=== PATIENT | female | born 1990 | race Caucasian/White ===

== ENCOUNTER 2022-01-21 07:47 | Inpatient (IN) ==
[2022-01-21] MEDS ORDERED: OXYTOCIN 30 UNITS/500 ML BAG IV PRN ×3 (08:08→18:31)
--- NOTE | 2022-01-21 08:22 | History & Physical Report ---
Date of Service January 21, 2022 Assessment & Plan (1) Post-term , 40-42 weeks of gestation: Plan: 31-year-old -0-0-2 at 40 weeks and 6 days of gestation, presenting today for scheduled induction of labor. Vital signs stable afebrile, heart rate reassuring, Cervix favorable, GBS negative, COVID testing negative, Plan to admit, monitor, labs, oxytocin per protocol, epidural for pain as patient desires, AROM. All questions were answered. Admission and Anticipated Discharge Date Admission Date: January 21, 2022 History of Present Illness Primary Care Provider: NO PCP Patient is a 31-year-old -0-0-2 at 40 weeks and 6 days of gestation who was scheduled for induction for postdates. She has no complaints. She denies contractions, leakage of fluid, vaginal bleeding. She reports good movements. Her has been uncomplicated. GBS negative. COVID testing negative. She denies any medical problems. Allergies Allergy/AdvReac Type Severity Reaction Status Date / Time No Known Allergies Allergy Unverified 06/15/15 08:58 Home Medications Medication Instructions Recorded Confirmed Type pediatric gozqmcjn-[id number] 1 tab PO DAILY 01/21/22 01/21/22 History (Flintstones Complete (iron)) Patient History Medical History No known health problems Surgical History No history of previous surgery Family History Grandmother (Maternal) Myocardial infarction Grandmother (Paternal) Diabetes Grandmother (Paternal) Polio OB History Full-term 's, 11 and 6 years old children. [employer] History No history of STDs. No history of chlamydia, gonorrhea, herpes. Review of Systems as per Subjective / HPI Physical Exam Constitutional: WD/WN, vitals as above well developed and well nourished Not in acute distress. Gastrointestinal (Abdomen): normal bowel sounds, soft, nontender, no hepatosplenomegaly (Gravid) Genitourinary: normal external appearance OB Exam Abdomen: + vertex Manual OB Exam: + cervical dilation 3 cm, + cervical effacement 50% and + station -2 OB Exam Monitor Tracing: + external uterine monitor used and + category I Results & Data ([facility]) Vital Signs (Past 12 Hours) Vital Signs Temp Pulse Resp BP 01/21/22 07:56 36.9 C 93 H 20 130/78
[2022-01-21] MEDS: LACTATED RINGER'S 1,000 ML IV PRN ×3 (08:47→16:49)
[2022-01-21 08:51] LABS: Hematocrit (blood only) 37.7 % (37-47); Hemoglobin 12.9 g/dL (12.0-16.0); Mean Corpuscular Hemoglobin 29.8 pg (25-34); Mean Corpuscular Hgb Conc 34.2 g/dL (32-36); Mean Corpuscular Volume 87.1 fL (80-100); Mean Platelet Volume 10.9 fL (7.4-10.4); Platelet Count 232 K/uL (130-400); RDW Coefficient of Variation 12.6 % (11.5-14.5); RDW Standard Deviation 40.3 fL (36.4-46.3); Red Blood Count 4.33 M/uL (4.2-5.4); White Blood Count 9.01 K/uL (4.8-10.8)
[2022-01-21 09:06] LABS: Alanine Aminotransferase 33 U/L (7-52); Albumin Globulin Ratio 0.8 (0.9-2); Albumin Level 3.1 gm/dl (3.4-5.0); Alkaline Phosphatase 242 U/L (34-104); Anion Gap 8 (3-11); Aspartate Aminotransferase 18 U/L (13-39); BUN Creatinine Ratio 18.4 (10-20); Bilirubin,Total 0.3 mg/dl (0.2-1.0); Blood Urea Nitrogen 9 mg/dl (6-23); Calcium 8.8 mg/dl (8.5-10.1); Carbon Dioxide 22 mmol/L (21-32); Chloride 104 mmol/L (98-107); Est GFR (African American) > 150.0 ml/min; Est GFR (Non-African American) 130.7 ml/min; Globulin 3.8 gm/dl (2.5-4.0); Glucose 95 mg/dl (70-99(Fasting)); Potassium 3.5 mmol/L (3.5-5.1); Sodium 134 mmol/L (136-145); Total Protein 6.9 gm/dl (6.0-8.3)
[2022-01-21] MEDS ORDERED: ePHEDrine sulfate 50 MG/ML AMP ONE (13:02)
[2022-01-21] MEDS ORDERED: fentaNYL citrate 100 MCG/2 ML VIAL ONE (13:03)
[2022-01-21] MEDS ORDERED: BUPIVACAINE 0.25% 30 ML VIAL ONE ×2 (13:03→17:06)
[2022-01-21] MEDS ORDERED: fentaNYL 2MCG/ML ROPIVACAINE 1.25MG/ML 100 ML BAG EPI ONE (13:03)
[2022-01-21] MEDS ORDERED: SODIUM CHLORIDE 0.9% INJ 10 ML VIAL ONE ×2 (13:03→17:06)
[2022-01-21] MEDS ORDERED: NALOXONE HCL 1 MG in SODIUM CHLORIDE 0.9% 1000ML 1,000 ML IV PRN (13:22)
[2022-01-21] MEDS ORDERED: NALBUPHINE HCL INJ 10 MG/ML AMP IV PRN (13:22)
[2022-01-21] MEDS ORDERED: ePHEDrine sulfate 50 MG/ML AMP IV PRN (13:22)
[2022-01-21] MEDS ORDERED: fentaNYL 2MCG/ML ROPIVACAINE 1.25MG/ML 100 ML BAG EPI PRN (13:22)
[2022-01-21] MEDS ORDERED: NALOXONE HCL 0.4 MG/1 ML VIAL/CARP IV PRN (13:22)
[2022-01-21] MEDS ORDERED: diphenhydrAMINE 50 MG/ML VIAL IV PRN (13:22)
--- NOTE | 2022-01-21 13:22 | Anesthesiology Consultation ---
Date of Service January 21, 2022 Assessment & Plan Chart Review Chart Review: Acceptable Risk for Surgery Consults Requested none Proposed Anesthesia Risk / Benefits Reviewed With: PT / POA / Parent / Guardian, Accepts Plan and Informed Consent Obtained History Height/Weight Height: 5 ft 7 in Weight: 86.636 kg Allergies Allergy/AdvReac Type Severity Reaction Status Date / Time No Known Allergies Allergy Unverified 06/15/15 08:58 Medications Home Medications Medication Instructions Recorded Confirmed Last Taken pediatric ormqstkn-xgkc-wki 1 tab PO DAILY 01/21/22 01/21/22 01/20/22 13:00 (Flintstones Complete (iron)) Active Medications Generic Name Dose Route Start Last Admin Trade Name Freq PRN Reason Stop Dose Admin Lactated Ringer's 1,000 mls @ 150 mls/hr 01/21/22 08:08 01/21/22 13:10 Lr IV 01/23/22 08:07 999 mls/hr .[id number] PRN Administration L&D Protocol Protocol Oxytocin 30 units in 500 mls @ 10 mls/hr 01/21/22 08:10 01/21/22 13:16 Pitocin IV 01/23/22 08:09 0.6 units/hr .Q24H PRN 10 mls/hr Labor Induction/Augmentation Titration Protocol 0.6 UNITS/HR Past Medical History Medical History No known health problems Exercise / Class Metabolic Activity II 4-5 Yardwork/Stairs/Walk up hill Past Family History Family History Grandmother (Maternal) Myocardial infarction Grandmother (Paternal) Diabetes Grandmother (Paternal) Polio Past Surgical History Surgical History No history of previous surgery Past Anesthesia History No Hx of Anesthesia Complications and No Family Hx of Anesthesia Complications History of PONV No Hx of PONV and No Hx of Motion Sickness Social History Smoking Status: Never smoker Hx Alcohol Use: No Hx Substance Use: No substance use type: does not use Physical Exam Vital Signs Last Vital Signs Temp 97.7 F 01/21/22 11:33 Pulse 68 01/21/22 13:19 Resp 18 01/21/22 12:38 BP 120/82 01/21/22 12:38 Pulse Ox 100 01/21/22 13:19 ENMT Mouth: no dentition abnormality Thyromental Distance: > or= 3.5 Finger Breadths Mallampati Class: II Neck normal visual inspection Respiratory normal respiratory effort Auscultation: lungs clear to auscultation bilaterally Cardiovascular Rate/Rhythm: regular rate and regular rhythm Testing Laboratory Results 01/21/22 08:27 01/21/22 08:27
--- NOTE | 2022-01-21 15:14 | Obstetrical Progress Note ---
Date of Service January 21, 2022 Assessment & Plan Admission and Anticipated Discharge Date Admission Date: January 21, 2022 Subjective Patient is reevaluated. She is comfortable now, received epidural for pain. heart rate category 1, [place] contractions every 2 minutes, Pitocin is at 10 mIU/min. Vaginal exam, cervix is 5 cm dilated, 70% effaced, tight bulging bag, AROM and clear fluid, head at -2 station, Continue to monitor closely, Anticipate . Results & Data ([facility]) Vital Signs (Past 12 Hours) Vital Signs Temp Pulse Resp BP Pulse Ox 01/21/22 15:09 70 100 01/21/22 15:05 77 141/87 H 01/21/22 15:04 86 99 01/21/22 14:59 71 99 01/21/22 14:54 73 99 01/21/22 14:49 116 H 99 01/21/22 14:44 79 99 01/21/22 14:39 74 99 01/21/22 14:35 81 115/70 01/21/22 14:34 68 99 01/21/22 14:29 78 100 01/21/22 14:24 81 99 01/21/22 14:20 71 20 127/76 01/21/22 14:19 73 98 01/21/22 14:14 71 98 01/21/22 14:09 95 H 99 01/21/22 14:04 78 100 01/21/22 13:59 82 100 01/21/22 13:54 85 100 01/21/22 13:49 88 20 116/78 100 01/21/22 13:47 83 122/82 01/21/22 13:46 82 121/72 01/21/22 13:44 91 H 142/83 H 100 01/21/22 13:39 80 100 01/21/22 13:34 73 100 01/21/22 13:29 76 162/80 H 100 01/21/22 13:24 95 H 100 01/21/22 13:19 68 100 01/21/22 12:38 69 18 120/82 01/21/22 11:33 36.5 C 20 01/21/22 11:32 65 129/81 01/21/22 10:29 80 116/80 01/21/22 10:13 66 137/86 06/06/22 09:52 77 134/72 06/06/22 09:36 77 114/77 01/21/22 09:21 81 20 122/75 01/21/22 07:56 36.9 C 93 H 20 130/78
[2022-01-21] MEDS ORDERED: HYDROCORTISONE ACETATE 25 MG SUPP PR PRN (18:31)
[2022-01-21] MEDS ORDERED: DIPHTHERIA/TETANUS/PERTUSSIS 0.5 ML SYR/VIAL IM ONE (18:31)
[2022-01-21] MEDS ORDERED: BENZOCAINE 20% AER SPR 82.5 GM CAN EXT PRN (18:31)
[2022-01-21] MEDS ORDERED: MEASLES, MUMPS & RUBELLA VIRUS VIAL SQ ONE (18:31)
[2022-01-21] MEDS ORDERED: IBUPROFEN 600 MG TAB PO PRN (18:31)
[2022-01-21] MEDS ORDERED: ACETAMINOPHEN 325 MG TAB PO PRN (18:31)
--- NOTE | 2022-01-21 18:38 | Delivery Summary ---
Vaginal Delivery Summary Date of Service January 21, 2022 Vaginal Delivery Summary Patient was found to be fluid dilated and desire to push she pushed to her contractions and delivered the head without difficulty shoulders were delivered with minimal traction there was a cord around right shoulder and body which was reduced. The baby was handed off to the mother where mouth and nose were suctioned, the cord was clamped times 2 and cut. The vagina and perineum were checked for lacerations, they were intact, no lacerations were found. The placenta was found to be in the vagina, delivered spontaneously as intact and complete. The uterus was explored and found to be empty. Fundus was firm and EBL was 50 mL. The mom and baby tolerated procedure well. The sponge instrument count was correct x2. Baby was a viable female , delivered at 6:22 PM, Apgars were 8/9 and weight is pending. No complications happened and I was present during whole procedure.
--- NOTE | 2022-01-21 21:27 | Anesthesia Procedure Note ---
Date of Service January 21, 2022 Anesthesia Post Epidural Note Vital Signs Vital Signs: Temp Pulse Resp BP Pulse Ox 97.9 F 87 18 111/59 L 98 01/21/22 20:35 01/21/22 20:13 01/21/22 20:35 01/21/22 20:13 01/21/22 18:24 Pain Intensity Abdomen: Pain Intensity: 2 Notes Mental Status: alert / awake / arousable and participated in evaluation Nausea / Vomiting: adequately controlled Pain: adequately controlled Airway Patency, RR, SpO2: stable & adequate BP & HR: stable & adequate Hydration State: stable & adequate Neuraxial Anesthesia: was administered and sensory block is resolving Anesthetic Complications: no major complications apparent and Pt Satisfied with anesthetic care Epidural: Removed without complications and With tip intact
[2022-01-21] MEDS: DOCUSATE SODIUM 100 MG CAP PO SCH ×2 (21:46→22:31)
[2022-01-22 06:31] LABS: Hematocrit (blood only) 38.5 % (37-47); Hemoglobin 13.2 g/dL (12.0-16.0); Mean Corpuscular Hemoglobin 29.7 pg (25-34); Mean Corpuscular Hgb Conc 34.3 g/dL (32-36); Mean Corpuscular Volume 86.7 fL (80-100); Mean Platelet Volume 10.7 fL (7.4-10.4); Platelet Count 213 K/uL (130-400); RDW Coefficient of Variation 12.5 % (11.5-14.5); RDW Standard Deviation 39.4 fL (36.4-46.3); Red Blood Count 4.44 M/uL (4.2-5.4); White Blood Count 12.53 K/uL (4.8-10.8)
--- NOTE | 2022-01-22 07:03 | Obstetrical Progress Note ---
Date of Service January 22, 2022 Assessment & Plan (1) Normal course: Continue routine PP course Plan for d/c at 24 hrs if patient wants to go home, otherwise tomorrow F/u in clinic in 3 and 6 weeks Subjective Ambulation: ambulating normally Voiding: no voiding problems Passing Gas:: Yes Diet Tolerance:: regular diet Lochia:: Moderate Feeding Type:: breast feeding Current Pain Level(1-10): 2 Has not taken any pain meds yet. Thinks she wants to go home at 24 hrs but hasnt made up mind yet. Bonding well with baby, no complaints Physical Exam Constitutional WD/WN, vitals as above Respiratory normal respiratory effort, lungs clear to auscultation Cardiovascular RRR, no murmur, no edema Gastrointestinal (Abdomen) normal bowel sounds, soft, nontender, no hepatosplenomegaly Results & Data ([facility]) Vital Signs (Past 12 Hours) Vital Signs Temp Pulse Pulse Resp BP BP Pulse Ox 01/22/22 04:15 36.6 C 75 16 113/79 100 01/22/22 00:30 36.9 C 76 18 112/72 97 01/21/22 21:30 36.5 C 88 16 102/67 98 01/21/22 20:35 36.6 C 18 01/21/22 20:13 87 111/59 L 01/21/22 20:05 18 01/21/22 19:35 18 01/21/22 19:21 85 131/71 01/21/22 19:20 18 01/21/22 19:05 87 20 132/78 Laboratory Results H/H 13.2/38.5%
[2022-01-22] MEDS ORDERED: Nursing to Pharmacy Communication SCH ×2 (07:30→08:45)
[2022-01-22] MEDS ORDERED: FERROUS SULFATE 325 MG TAB PO SCH (08:00)
[2022-01-22] MEDS ORDERED: PRENATAL VITAMIN 1 TAB PO SCH (08:00)
[2022-01-22] MEDS: IBUPROFEN 200 MG/10 ML UDC PO PRN ×2 (08:59→19:41)
[2022-01-22] MEDS: DOCUSATE SODIUM 100 MG CAP PO SCH (09:00)
[2022-01-22] MEDS ORDERED: MULTIVITAMIN CHEWABLE TAB PO SCH (10:00)
[2022-01-22] MEDS ORDERED: bisacodyL 5 MG TABEC PO SCH (20:00)
[2022-01-23] MEDS ORDERED: bisacodyL 10 MG SUPP PR PRN (18:31)
== END 2022-01-22 20:07 | disposition home or self-care (01) | DRG 807 ==
LOC: 4S1 07:47 → 4E2 20:53